=== PATIENT | female | born 1965 | race Caucasian/White ===

== ENCOUNTER 2020-05-27 09:45 | Inpatient (IN) | payer OTHER ==
[~2020-05-27] VITALS: Ht 175.3 cm; Wt 109.1 kg
[2020-05-27] VITALS (15 sets, daily range): BP systolic 89–135; BP diastolic 46–74
[2020-05-27] MEDS ORDERED: NO HOME MEDS (10:31)
--- NOTE | 2020-05-27 10:31 | NUR ---
Pt has not had anything by mouth since 2199 last night.
[2020-05-27] MEDS: ringers solution, lacted 1,000 ML IV SCH ×4 (10:50→21:08)
[2020-05-27 11:04] LABS: BASOPHILS % (AUTO) 0.6 % (0-1); EOSINOPHILS % (AUTO) 0.9 % (0-6); HEMATOCRIT 37.6 % (35.0-45.0); LYMPHOCYTES # (AUTO) 1.4 X10'3 (1.1-4.8); LYMPHOCYTES % (AUTO) 25.7 % (21-51); MEAN CORPUSCULAR HEMOGLOBIN 29.3 PG (27.0-31.0); MEAN CORPUSCULAR HGB CONC 34.5 g/dL (33.0-36.5); MEAN CORPUSCULAR VOLUME 84.9 FL (78-98); MEAN PLATELET VOLUME 7.4 FL (7.4-10.4); MONOCYTES # (AUTO) 0.4 X10'3 (0-0.9); MONOCYTES % (AUTO) 7.2 % (2-12); NEUTROPHILS # (AUTO) 3.5 X10'3 (1.8-7.7); NEUTROPHILS % (AUTO) 65.6 % (42-75); PLATELET COUNT 198 X10'3 (140-440); RED BLOOD COUNT 4.43 X10'6 (4.20-5.60); RED CELL DISTRIBUTION WIDTH 14.3 % (11.5-14.5); WHITE BLOOD COUNT 5.3 X10'3 (4.5-11.0)
[2020-05-27 11:23] LABS: ALKALINE PHOSPHATASE 71 IU/L (46-116); ANION GAP 8 (8-16); ASPARTATE AMINO TRANSFERASE 14 U/L (10-37); BILIRUBIN,TOTAL 0.4 MG/DL (0.1-1.0); CHLORIDE 108 MMOL/L (99-107); POTASSIUM 3.6 MMOL/L (3.5-5.1); SODIUM 142 MMOL/L (135-145); TOTAL CARBON DIOXIDE 25.8 MMOL/L (24-32)
[2020-05-27 11:39] LABS: ALANINE AMINOTRANSFERASE 15 U/L (12-78); ALBUMIN 3.5 G/DL (3.4-5.0); CALCIUM 8.8 MG/DL (8.5-10.1); GLUCOSE 106 MG/DL (70-104); eGFR 75 ML/MIN
[2020-05-27 11:50] LABS: BLOOD UREA NITROGEN 12 MG/DL (7-18)
[2020-05-27] MEDS ORDERED: morphine 4 MG/ML inj SYRINge IV PRN (12:55)
[2020-05-27] MEDS ORDERED: labetalol 20mg/4ml (5mg/ml) syringe IV PRN (12:55)
[2020-05-27] MEDS ORDERED: morphine 2 MG/ML inj. syringe IV PRN (12:55)
[2020-05-27] MEDS ORDERED: ringers solution, lacted 1,000 ML IV SCH (12:55)
[2020-05-27] MEDS ORDERED: fentaNYL/PF 50MCG/1 ML 2ML syringe IV PRN ×2 (12:55)
[2020-05-27] MEDS ORDERED: hydrALAZINE 20mg/ml inj. IV PRN (12:55)
[2020-05-27] MEDS ORDERED: ondansetron/PF 4mg/2ml inj IV PRN (12:55)
[2020-05-27 13:33] LABS: CLARITY,URINE SLIGHTLY CLOUDY (Clear); COLOR,URINE YELLOW (Yellow); GLUCOSE, URINE NEGATIVE (Neg); KETONES,URINE NEGATIVE (Neg); LEUKOCYTE ESTERASE ,URINE SMALL (Neg); NITRITES, URINE NEGATIVE (Neg); OCCULT BLOOD,URINE NEGATIVE (Neg); PH,URINE 6.5 (4.8-8.0); PROTEIN,URINE NEGATIVE (Neg); UROBILINOGEN,URINE 0.2 E.U/dL (0.2-1.0)
[2020-05-27 13:50] LABS: UA COLLECTION TYPE CLN CATCH MIDSTREAM
[2020-05-27 13:56] LABS: MUCUS STRANDS MODERATE /LPF (Neg)
[2020-05-27 14:01] LABS: RBC,URINE NONE SEEN /HPF (0-2); WBC,URINE 0-4 /HPF (0-4)
[2020-05-27 14:08] LABS: SQUAMOUS EPITHELIAL CELL,UR MODERATE /LPF (FEW)
[2020-05-27 14:09] LABS: BACTERIA,URINE 1+ /HPF (Neg)
[2020-05-27] MEDS ORDERED: LIDOcaine 1% 30ml preserv. free vial ONE (15:43)
[2020-05-27] MEDS ORDERED: BUPIVAcaine/PF 2.5mg/ml (0.25%) 10ml vial ONE (15:44)
[2020-05-27] MEDS ORDERED: BUPIVAcaine/PF 2.5 mg/ml (0.25%) 30ml vial ONE (15:44)
[2020-05-27] MEDS ORDERED: BUPIVACAINE liposomal/PF 13.3 MG/ML vial IM ONE (15:44)
[2020-05-27] MEDS ORDERED: sevoflurane 250ml liquid IH ONE (16:11)
[2020-05-27] MEDS ORDERED: dexamethasone sod phosphate 10mg/ml inj ONE (16:11)
[2020-05-27] MEDS ORDERED: labetalol 20mg/4ml (5mg/ml) syringe IV ONE (16:11)
[2020-05-27] MEDS ORDERED: midazolam 2 mg/2 ml injection ONE (16:25)
[2020-05-27] MEDS ORDERED: fentaNYL/PF 50MCG/1 ML 2ML syringe ONE ×2 (16:25→17:05)
[2020-05-27] MEDS ORDERED: LIDOcaine 2% (20mg/ml) 5ml vial ONE (16:27)
[2020-05-27] MEDS ORDERED: propofol inj 20 ML IV ONE (16:27)
[2020-05-27] MEDS ORDERED: ondansetron/PF 4mg/2ml inj ONE (16:27)
[2020-05-27] MEDS ORDERED: rocuronium 10mg/ml inj IV ONE (16:28)
[2020-05-27] MEDS ORDERED: ceFAZolin 1000mg inj ONE ×2 (16:28)
[2020-05-27] MEDS ORDERED: sugammadex 200mg/2ml injection IV ONE (18:02)
--- NOTE | 2020-05-27 18:12 | NUR ---
Received from OR via BED, accompanied by Anesthesiologist DR BRONSON and report given by Anesthesiologist. PT DROWSY, DENIES PAIN, ABD BINDER ON AND IN PLACE COVERING LAP SITES CDI, ROCK CATHETER TO GRAVITY DRAINAGE W/YELLOW URINE IN DRAINAGE BAG. Addendum: 05/27/20 at 1833 by Myriam Dorantes RN Amended: Links added.
[2020-05-27] MEDS ORDERED: CADD PCA waste documentation MC PRN (18:30)
[2020-05-27] MEDS ORDERED: naloxone 0.4 mg/ml inj IV PRN (18:30)
--- NOTE | 2020-05-27 18:59 | NUR ---
Patient in room ED 15. I have received report from LAKEISHA Miguel and had the opportunity to ask questions and assume patient care.
[2020-05-27] MEDS: HYDROmorphone/NS 1 mg/ml CADD 50 ML IV SCH ×4 (19:00→23:00)
--- NOTE | 2020-05-27 19:22 | NUR ---
Report called to receiving nurse. Transferred via BED, 1 BAG OF PERSONAL Belongings, TIM SENT W/PT TO ROOM 354A, PT TRANSFERRED BY LAKEISHA DELCID, RECEIVING RN AT BEDSIDE TO RECEIVE PT. Special Issues communicated to receiving nurse. YES. Addendum: 05/27/20 at 1924 by Myriam Dorantes RN Amended: Links added.
[2020-05-28] VITALS: BP 104/57
[2020-05-28] MEDS: HYDROmorphone/NS 1 mg/ml CADD 50 ML IV SCH ×9 (01:00→17:00)
[2020-05-28] MEDS: ondansetron/PF 4mg/2ml inj IV PRN ×3 (01:42→19:06)
[2020-05-28] MEDS: ringers solution, lacted 1,000 ML IV SCH ×3 (05:22→14:57)
--- NOTE | 2020-05-28 06:00 | NUR ---
Patient in room [facility]. I have received report from LAKEISHA Doss and had the opportunity to ask questions and assume patient care.
--- NOTE | 2020-05-28 06:04 | NUR ---
Problems reprioritized. Patient report given, questions answered & plan of care reviewed with LAKEISHA Portillo.
[2020-05-28] MEDS: enoxaparin 40mg/0.4ml syringe SQ SCH (07:17)
[2020-05-28 08:00] VITALS: BP 103/49
--- NOTE | 2020-05-28 09:53 | NUR ---
PER Soto Dee to D/c after urinating. Addendum: 05/28/20 at 1004 by Bandar Paredes RN MD aware patient is hypoactive bowel sounds, flatus absent, and poorly tolerating regular diet. Addendum: 05/28/20 at 1654 by Bandar Paredes RN Patient was unable to void spontaneously and was straight cathed x1. MD holcombed sending patient home despite being unable to void spontaneously at this time.
[2020-05-28] MEDS ORDERED: FLU VACC QS2020-21(6MOS UP)/PF 60 MCG/0.5 ML SYRINGE IMVAC ONE (10:00)
[2020-05-28] MEDS ORDERED: pneumococcal 23-VAL P-sac vacc 25 mcg/0.5ml vial IMVAC ONE (10:00)
[2020-05-28 11:00] VITALS: BP 94/46
[2020-05-28] MEDS ORDERED: OXYC-145 PO (16:51)
--- NOTE | 2020-05-28 17:45 | NUR ---
Patient verbalized understanding of d/c orders and states will follow. Patient received paper copy of percocet-5. Patient informed that if she has difficulty peeing persisting into tomorrow to return to the ER.
--- NOTE | 2020-05-28 18:00 | NUR ---
Problems reprioritized. Patient report given, questions answered & plan of care reviewed with LAKEISHA Doss.
--- NOTE | 2020-05-28 18:38 | NUR ---
Patient in room [facility]. I have received report from LAKEISHA Portillo and had the opportunity to ask questions and assume patient care.
[2020-05-28 20:00] VITALS: BP 118/50
[2020-05-28] MEDS ORDERED: oxyCODONE/APAP 5-325mg tablet PO PRN (20:00)
[2020-05-28] MEDS: oxyCODONE/APAP 5-325mg tablet PO PRN (20:51)
--- NOTE | 2020-05-28 20:51 | NUR ---
Re-hooked pt to IV.
[2020-05-29] VITALS: BP 100/50
[2020-05-29] MEDS: oxyCODONE/APAP 5-325mg tablet PO PRN ×4 (00:40→18:54)
[2020-05-29] MEDS: ringers solution, lacted 1,000 ML IV SCH ×2 (04:24→14:54)
--- NOTE | 2020-05-29 05:53 | NUR ---
I wasted dilaudid Cadd with Selam SUAZO. 38mg wasted. unable to document
--- NOTE | 2020-05-29 05:54 | NUR ---
38.0 mL dilaudid CADD wasted with LAKEISHA Boogie.
--- NOTE | 2020-05-29 06:31 | NUR ---
Patient in room [facility]. I have received report from LAKEISHA Doss and had the opportunity to ask questions and assume patient care.
--- NOTE | 2020-05-29 06:35 | NUR ---
Problems reprioritized. Patient report given, questions answered & plan of care reviewed with LAKEISHA Otero.
[2020-05-29 07:00] VITALS: BP 103/55
[2020-05-29] MEDS: enoxaparin 40mg/0.4ml syringe SQ SCH (09:13)
[2020-05-29 10:17] LABS: BASOPHILS # (AUTO) 0.1 X10'3 (0-0.2); BASOPHILS % (AUTO) 0.8 % (0-1); EOSINOPHILS # (AUTO) 0.1 X10'3 (0-0.9); EOSINOPHILS % (AUTO) 1.7 % (0-6); HEMATOCRIT 31.2 % (35.0-45.0); HEMOGLOBIN 10.7 g/dl (12.0-16.0); LYMPHOCYTES # (AUTO) 1.3 X10'3 (1.1-4.8); LYMPHOCYTES % (AUTO) 21.9 % (21-51); MEAN CORPUSCULAR HEMOGLOBIN 29.5 PG (27.0-31.0); MEAN CORPUSCULAR HGB CONC 34.3 g/dL (33.0-36.5); MEAN CORPUSCULAR VOLUME 85.8 FL (78-98); MEAN PLATELET VOLUME 7.7 FL (7.4-10.4); MONOCYTES # (AUTO) 0.6 X10'3 (0-0.9); MONOCYTES % (AUTO) 9.3 % (2-12); NEUTROPHILS % (AUTO) 66.3 % (42-75); PLATELET COUNT 168 X10'3 (140-440); RED BLOOD COUNT 3.64 X10'6 (4.20-5.60); RED CELL DISTRIBUTION WIDTH 14.2 % (11.5-14.5); WHITE BLOOD COUNT 6.1 X10'3 (4.5-11.0)
[2020-05-29 10:24] LABS: ALBUMIN 3.1 G/DL (3.4-5.0); ANION GAP 5 (8-16); BLOOD UREA NITROGEN 12 MG/DL (7-18); BUN/CREATININE RATIO 12.5 (6.6-38.0); CALCIUM 8.2 MG/DL (8.5-10.1); CHLORIDE 105 MMOL/L (99-107); CREATININE 0.96 MG/DL (0.40-0.90); GLUCOSE 111 MG/DL (70-104); SODIUM 140 MMOL/L (135-145); TOTAL CARBON DIOXIDE 30.2 MMOL/L (24-32); eGFR 61 ML/MIN
[2020-05-29 11:30] VITALS: BP 103/59
[2020-05-29] MEDS ORDERED: magnesium hydroxide 30ml (MOM) UD suspension PO ONE (12:00)
[2020-05-29] MEDS ORDERED: methylnaltrexone br 12mg/0.6ml inj***SubQ only SQ ONE (12:00)
--- NOTE | 2020-05-29 18:30 | NUR ---
Patient in room [facility]. I have received report from LAKEISHA CABEZAS and had the opportunity to ask questions and assume patient care. Addendum: 05/29/20 at 1917 by Trish Polk RN Amended: Links added.
[2020-05-29 18:50] VITALS: BP 115/46
--- NOTE | 2020-05-29 18:50 | NUR ---
Problems reprioritized. Patient report given, questions answered & plan of care reviewed with LAKEISHA Bright.
--- NOTE | 2020-05-29 19:08 | NUR ---
USING IS, ENC C&DB, ENC AMBULATION. PT STATES WILL AMB TONIGHT AFTER PAIN CONTROLLED. PERCOCET GIVEN. OCC COUGH SMALL AMT SPUTUM "MILKY" COLOR PER PT. URINE CLEAR YELLOW F/C. ABD BINDER ON, LAP SITES WELL APPROX, SCD'D IN PLACE AT @ 25% STATES SHERIN BETTER OCC SL NAUSEA. Addendum: 05/29/20 at 0 by Trish Polk RN Amended: Links added.
[2020-05-29] MEDS: ondansetron/PF 4mg/2ml inj IV PRN (22:35)
--- NOTE | 2020-05-29 22:38 | NUR ---
C/O NAUSEA AND HEADACHE. ZOFRAN GIVEN, COOL COMPRESS TO FOREHEAD. Addendum: 05/29/20 at 2238 by Trish Polk RN Amended: Links added.
[2020-05-30] VITALS: BP 113/48
[2020-05-30] MEDS: oxyCODONE/APAP 5-325mg tablet PO PRN (00:01)
[2020-05-30] MEDS: ringers solution, lacted 1,000 ML IV SCH (00:02)
--- NOTE | 2020-05-30 00:03 | NUR ---
NO NAUSEA, PERCOCET GIVEN FOR PAIN. Addendum: 05/30/20 at 0005 by Trish Polk RN Amended: Links added.
--- NOTE | 2020-05-30 06:43 | NUR ---
Problems reprioritized. Patient report given, questions answered & plan of care reviewed with LAKEISHA SHI. Addendum: 05/30/20 at 0643 by Trish Polk RN Amended: Links added.
--- NOTE | 2020-05-30 06:53 | NUR ---
Patient in room [facility]. I have received report from Jake Hernandez and had the opportunity to ask questions and assume patient care.
[2020-05-30 08:00] VITALS: BP 109/58
[2020-05-30] MEDS: enoxaparin 40mg/0.4ml syringe SQ SCH (08:05)
[2020-05-30 11:00] VITALS: BP 132/74
--- NOTE | 2020-05-30 11:08 | NUR ---
Dr Doherty is aware patient ambulated 100' with FWW. Hospital will supply patient with FWW for discharge. Dr Doherty ok to discharge patient with hill catheter and to have patient follow up in his office on Tuesday for the hill to be removed and check up. Dr Doherty would like patient to go home with a leg back and teaching. Primary RN aware
--- NOTE | 2020-05-30 14:55 | NUR ---
Pt DC to home and on no apparent distress. Pt was educated and is able to teach back how to change and empty her Zhou bag. Pt given supplies to properly change and empty bags. Overnight bag and leg bag given . Pt verbalizes the importance of following up with Dr Doherty on Tuesday so they can remove her Zhou cath and assess her surgical incisions. Pt given a walker to help her get around the house and to the bathroom. Pt states she feels better is she has one. pt surgical sites are D & I. Pt given a prescription she has to take to the pharmacy to get narcotics for pain. Pt states someone is going to help her, even though some plans have fallen through at home. Pt packed her belongings and carried her supplies out to the front where her sister picked her up to take her home.
== END 2020-05-30 14:58 | disposition home or self-care (01) | DRG 355 ==
LOC: ER 09:46 → ED HOLD 12:19 → INTOOBSV 12:19 → SUR 3N 19:20 → OBSVTOIN 05-28 20:18
PROVIDERS: ADMIT Surgery; ATTEND Surgery
PROC: 8E0W4CZ Robotic Assisted Procedure of Trunk Region, Percutaneous Endoscopic Approach (ICD-10-PCS; 2020-05-27)
PROC: 0WUF4JZ Supplement Abdominal Wall with Synthetic Substitute, Percutaneous Endoscopic Approach (ICD-10-PCS; principal; 2020-05-27 16:11)
PROC: 3E02340 Introduction of Influenza Vaccine into Muscle, Percutaneous Approach (ICD-10-PCS; 2020-05-28)
PROC: 3E0234Z Introduction of Serum, Toxoid and Vaccine into Muscle, Percutaneous Approach (ICD-10-PCS; 2020-05-28)
DX: K43.0 Incisional hernia with obstruction, without gangrene (principal); Z88.8 Allergy status to other drugs, medicaments and biological substances; Z20.828 Contact with and (suspected) exposure to other viral communicable diseases; Z90.710 Acquired absence of both cervix and uterus; Z23 Encounter for immunization
CPT/HCPCS: 36415; 71045; 80048; 80053; 81001; 85025; 85610; 87081; 87088; 87635; 93005; 99285; A4215; A4618; C1758; C1781; C9290; C9399; C9803; G0378; J0690; J1100; J1170; J1650; J2001; J2212; J2250; J2270; J2405; J2704; J3010; J3490; J7120

== ENCOUNTER 2020-07-18 09:00 | Day surgery (SDC) | payer MEDICAID ==
[~2020-07-18] VITALS: Ht 167.6 cm; Wt 100.0 kg
[~2020-07-18 09:00] MED LIST: NO HOME MEDS; OXYC-145 PO
[2020-07-18 09:15] VITALS: BP 144/75
[2020-07-18] MEDS ORDERED: MULT-1085 PO (09:29)
[2020-07-18] MEDS ORDERED: LACT1CAP65 PO (09:30)
[2020-07-18] MEDS ORDERED: CHOL10006 PO (09:30)
[2020-07-18] MEDS ORDERED: PSYL0.525 PO (09:30)
[2020-07-18] MEDS ORDERED: fentaNYL/PF 50MCG/1 ML 2ML syringe ONE (10:04)
[2020-07-18] MEDS ORDERED: MIDAZolam 5mg/5ml vial ONE (10:04)
[2020-07-18 10:43] VITALS: BP 137/72
[2020-07-18 10:53] VITALS: BP 125/75
[2020-07-18 11:03] VITALS: BP 123/73
[2020-07-18 11:13] VITALS: BP 123/69
== END 2020-07-18 11:43 | disposition home or self-care (01) ==
LOC: GI LAB 09:00
PROVIDERS: ATTEND Internal Medicine Gastroenterology
DX: Z12.11 Encounter for screening for malignant neoplasm of colon (principal); K64.8 Other hemorrhoids; E66.9 Obesity, unspecified; Z68.35 Body mass index [BMI] 35.0-35.9, adult; Z79.899 Other long term (current) drug therapy; Z86.010 Personal history of colon polyps; Z88.2 Allergy status to sulfonamides; Z91.040 Latex allergy status; Z72.89 Other problems related to lifestyle; Z90.710 Acquired absence of both cervix and uterus
CPT/HCPCS: 45378; 99152; 99153; J2250; J3010; J7040; 43235; A4620

== ENCOUNTER 2023-08-08 11:55 | Emergency (ER) | payer SELFPAY ==
[~2023-08-08] VITALS: Ht 174 cm; Wt 114.8 kg
[~2023-08-08 11:55] MED LIST changes: +CHOL10006 PO; +LACT1CAP65 PO; +MULT-1085 PO; -NO HOME MEDS; -OXYC-145 PO; +PSYL0.525 PO
[2023-08-08 12:17] VITALS: BP 174/77; PULSE 80; TEMP 98.2; O2SAT 95
[2023-08-08 14:09] VITALS: RESP 17
[2023-08-08] MEDS: ketorolac trometh inj. 60 MG/2 ML VIAL IM ONE (14:09)
== END 2023-08-08 15:38 | disposition home or self-care (01) ==
LOC: ER 11:55
DX: S83.91XA Sprain of unspecified site of right knee, initial encounter (principal); Z88.6 Allergy status to analgesic agent; Z91.040 Latex allergy status; Z79.899 Other long term (current) drug therapy; W19.XXXA Unspecified fall, initial encounter; Y93.89 Activity, other specified; Y92.89 Other specified places as the place of occurrence of the external cause; Y99.8 Other external cause status
CPT/HCPCS: 73562; 96372; 99283; J1885

== ENCOUNTER 2023-11-03 15:48 | Outpatient (CLI) | payer BC | END 2023-11-03 23:59 | disposition home or self-care (01) | LOC: RAD 15:48 | PROVIDERS: ATTEND Physician Assistant Surgical | DX: M25.461 Effusion, right knee (principal); M25.561 Pain in right knee | CPT/HCPCS: 73700 ==

== ENCOUNTER 2024-04-25 12:14 | Emergency (ER) | payer BC ==
[~2024-04-25] VITALS: Ht 172.7 cm; Wt 112.8 kg
[2024-04-25 15:17] VITALS: BP 124/82; PULSE 78; RESP 14; TEMP 96.7; O2SAT 98
== END 2024-04-25 15:21 | disposition home or self-care (01) ==
LOC: ER 12:15
DX: S76.811A Strain of other specified muscles, fascia and tendons at thigh level, right thigh, initial encounter (principal); Z88.6 Allergy status to analgesic agent; Z91.040 Latex allergy status; Z79.899 Other long term (current) drug therapy; X58.XXXA Exposure to other specified factors, initial encounter; Y93.89 Activity, other specified; Y92.89 Other specified places as the place of occurrence of the external cause; Y99.8 Other external cause status
CPT/HCPCS: 93971; 99284